=== PATIENT | female | born 1985 | race Caucasian/White ===

== ENCOUNTER 2018-11-05 17:01 | Emergency (ER) | payer OTHER ==
[~2018-11-05] VITALS: Ht 160 cm; Wt 119.8 kg
[~2018-11-05 17:01] MED LIST: ALLERGY SINUS-1 EACH; KEFLEX500 MG; ORTHO TRI-CYCL1 EAC1; PHENAZOPYRIDIN200 M2; ZOFRAN ODT4 MG SUBLING
[2018-11-05] MEDS ORDERED: NORFLEX100 MG PO ×2 (19:48→19:55)
[2018-11-05 19:59] VITALS: BP 122/89
== END 2018-11-05 19:59 | disposition home or self-care (01) ==
LOC: M.ERS 17:01
DX: S16.9XXA Unspecified injury of muscle, fascia and tendon at neck level, initial encounter (principal); R51 Headache; M62.830 Muscle spasm of back; Z90.49 Acquired absence of other specified parts of digestive tract; Z88.8 Allergy status to other drugs, medicaments and biological substances; V89.2XXA Person injured in unspecified motor-vehicle accident, traffic, initial encounter; Y93.89 Activity, other specified; Y92.89 Other specified places as the place of occurrence of the external cause; Y99.8 Other external cause status